=== PATIENT | female | born 1945 | race Caucasian/White ===

== ENCOUNTER 2020-11-02 12:33 | Inpatient (IN) | payer OTHER, MEDICAID ==
[~2020-11-02] VITALS: Ht 147.3 cm; Wt 44.0 kg
[2020-11-02] MEDS ORDERED: ARICEPT5 M1 PO (14:42)
[2020-11-02] MEDS ORDERED: Hydralazine Hyd25 MG PO (14:47)
[2020-11-02] MEDS ORDERED: LEVOTHYROXINE50 MCG PO (14:50)
[2020-11-02] MEDS ORDERED: MILK OF MA400 MG/5 M PO (14:58)
[2020-11-02] MEDS ORDERED: MULTIVITAMINS1 EAC6 PO (16:08)
[2020-11-02] MEDS ORDERED: VISTARIL50 MG PO (16:11)
[2020-11-02] MEDS ORDERED: VITAMIN D350 MC2 PO (16:18)
[2020-11-02] MEDS ORDERED: DULCOLAX10 M1 R (16:21)
[2020-11-02] MEDS ORDERED: LETROZOLE2.5 M2 PO (16:26)
[2020-11-02] MEDS ORDERED: ACETAMINOPHEN325 M2 PO (16:28)
[2020-11-02] MEDS ORDERED: LEADER ASPIRIN325 MG PO (16:31)
[2020-11-02] MEDS ORDERED: ATIVAN1 MG PO (16:33)
[2020-11-02] MEDS ORDERED: ATIVAN1 MG SL (16:35)
[2020-11-02] MEDS ORDERED: DEPAKOTE SPRIN125 MG PO (16:37)
[2020-11-02] MEDS ORDERED: ATORVASTATIN CA40 M1 PO (16:38)
[2020-11-03 10:09] VITALS: BP 149/83
[2020-11-03] MEDS ORDERED: ONE DAILY WOME1 EACH PO (11:37)
[2020-11-03] MEDS ORDERED: FLEET ENEMA 13133 ML R (11:38)
[2020-11-03 16:24] LABS: BILIRUBIN Negative (Negative); BLOOD Negative (Negative); CLARITY Clear (Clear); COLOR Yellow (Yellow); GLUCOSE Negative (Negative); KETONE 1+ (Negative); LEUKO ESTERASE Negative (Negative); NITRITE Negative (Negative)
[2020-11-03 17:26] LABS: BACTERIA TRACE; EPITHELIAL CELLS 0-2; MUCOUS TRACE; RBC 0-2 rbc/hpf (0-2)
[2020-11-03 20:00] VITALS: BP 125/64
[2020-11-04 11:23] VITALS: BP 142/80
[2020-11-04 13:56] LABS: BASO % 0.7 % (0.0-1.0); EOS % 0.3 % (1.0-4.0); HEMATOCRIT 38.6 % (37.0-47.0); LYMPH # 0.8 10*3/uL (1.3-4.4); LYMPH % 13.8 % (27.0-41.0); MEAN CORPUSCULAR HGB 30.1 pg (27.0-31.0); MEAN CORPUSCULAR HGB CONC 32.4 g/dl (33.0-37.0); MEAN PLATELET VOLUME 10.1 fl (9.6-12.3); MONO # 0.4 10*3/uL (0.1-1.0); MONO % 6.5 % (3.0-9.0); NEUT # 4.6 10*3/uL (2.3-7.9); NEUT % 78.5 % (47.0-73.0); PLATELET COUNT AUTOMATED 277 10*3/uL (130-400); RED BLOOD COUNT 4.15 10*6/uL (4.10-5.10); RED CELL DISTRI WIDTH 12.5 % (0-14.5); WHITE BLOOD COUNT 5.9 10*3/uL (4.8-10.8)
[2020-11-04 14:13] LABS: ALBUMIN 3.9 gm/dl (3.1-4.5); CREATININE 1.29 mg/dL (0.55-1.02); POTASSIUM 4.4 mmol/L (3.5-5.1); TOTAL PROTEIN 7.5 gm/dL (6.4-8.2)
[2020-11-04 14:20] LABS: THYROID STIM HORMONE (HS) 3.3 uIU/ml (0.358-4.75)
[2020-11-04 15:26] LABS: VITAMIN D, 25-HYDROXY 34.1 ng/mL (30-100)
[2020-11-04 20:00] VITALS: BP 136/50
[2020-11-05 11:39] VITALS: BP 149/69
[2020-11-05 19:45] VITALS: BP 125/78
[2020-11-06 07:23] VITALS: BP 141/67
[2020-11-06 20:00] VITALS: BP 138/57
[2020-11-07 08:00] VITALS: BP 118/84
[2020-11-07 19:58] VITALS: BP 116/86
[2020-11-08 08:22] VITALS: BP 149/53
[2020-11-08 20:00] VITALS: BP 135/69
[2020-11-09 08:11] VITALS: BP 138/50
[2020-11-09 20:00] VITALS: BP 152/52
[2020-11-10 07:50] VITALS: BP 108/70
[2020-11-10 20:00] VITALS: BP 135/69
[2020-11-11 07:48] VITALS: BP 128/70
[2020-11-11 20:00] VITALS: BP 144/62
[2020-11-12 07:22] VITALS: BP 122/86
[2020-11-12 20:00] VITALS: BP 128/72
[2020-11-13 07:49] VITALS: BP 137/64
[2020-11-13 20:00] VITALS: BP 122/68
[2020-11-14 08:00] VITALS: BP 148/64
[2020-11-14] MEDS ORDERED: RISPERIDONE M-TA1 MG BC (09:52)
[2020-11-14] MEDS ORDERED: MEMANTINE HCL10 MG PO (09:52)
[2020-11-14] MEDS ORDERED: MIRTAZAPINE15 M2 PO (09:52)
[2020-11-14] MEDS ORDERED: RIVASTIGMINE1 EAC2 T (09:52)
[2020-11-14 20:00] VITALS: BP 128/50
[2020-11-15 07:04] VITALS: BP 121/62
[2020-11-15] MEDS ORDERED: ROZEREM8 MG PO ×2 (08:43→09:38)
== END 2020-11-15 14:40 | DRG 883 ==
LOC: 3N 12:33
PROVIDERS: ADMIT Psychiatry & Neurology Psychiatry; ATTEND Psychiatry & Neurology Psychiatry
DX: F63.81 Intermittent explosive disorder (principal); N18.30 Chronic kidney disease, stage 3 unspecified; N17.0 Acute kidney failure with tubular necrosis; F23 Brief psychotic disorder; C50.911 Malignant neoplasm of unspecified site of right female breast; C50.912 Malignant neoplasm of unspecified site of left female breast; M19.90 Unspecified osteoarthritis, unspecified site; G30.0 Alzheimer's disease with early onset; Z20.822 Contact with and (suspected) exposure to COVID-19; E03.9 Hypothyroidism, unspecified; E78.5 Hyperlipidemia, unspecified; J44.9 Chronic obstructive pulmonary disease, unspecified; F02.80 Dementia in other diseases classified elsewhere, unspecified severity, without behavioral disturbance, psychotic disturbance, mood disturbance, and anxiety; I10 Essential (primary) hypertension; R73.9 Hyperglycemia, unspecified; E55.9 Vitamin D deficiency, unspecified; Z87.891 Personal history of nicotine dependence; Z88.0 Allergy status to penicillin; Z79.899 Other long term (current) drug therapy; Z79.1 Long term (current) use of non-steroidal anti-inflammatories (NSAID)